=== PATIENT | female | born 1990 | race Two or more races ===

== ENCOUNTER 2018-01-31 17:22 | Emergency (ER) | payer MEDICAID, OTHER ==
[~2018-01-31] VITALS: Ht 160 cm; Wt 61.2 kg
[~2018-01-31 17:22] MED LIST: PRENCAP2
[2018-01-31 17:47] VITALS: BP 133/74
== END 2018-01-31 18:11 ==
LOC: ER 17:22
DX: Z02.89 Encounter for other administrative examinations (principal); F10.10 Alcohol abuse, uncomplicated

== ENCOUNTER 2021-02-23 15:59 | Emergency (ER) | payer MEDICAID ==
[~2021-02-23] VITALS: Ht 162.6 cm; Wt 70.3 kg
[2021-02-23] MEDS ORDERED: KETOROLAC TROMETH 60MG/2ML VIAL IM ONE (18:00)
[2021-02-23 20:00] VITALS: BP 131/75
== END 2021-02-23 20:33 | disposition home or self-care (01) ==
LOC: ER 15:59
DX: M47.816 Spondylosis without myelopathy or radiculopathy, lumbar region (principal)
CPT/HCPCS: 72100; 96372; 99283; J1885